=== PATIENT | male | born 1945 | race Caucasian/White ===

== ENCOUNTER 2022-06-16 09:59 | Outpatient (CLI) | payer MEDICARE, SELFPAY ==
[2022-06-16 10:26] LABS: Hematocrit 43.2 % (42.0-52.0); Hemoglobin 14.3 g/dL (14.0-18.0)
== END 2022-06-16 10:00 | disposition home or self-care (01) ==
PROVIDERS: Anesthesiology; PCP Internal Medicine; Visit Provider Neurological Surgery
DX: M48.061 Spinal stenosis, lumbar region without neurogenic claudication (principal); M48.07 Spinal stenosis, lumbosacral region; Z01.818 Encounter for other preprocedural examination
CPT/HCPCS: 36415; 85014; 85018; 86850; 86900; 86901

== ENCOUNTER 2022-06-19 00:53 | Day surgery (SDC) | payer MEDICARE, SELFPAY ==
[2022-06-12 09:32] VITALS: BMI 27.6
--- NOTE | 2022-06-12 10:05 | PC.NURSE ---
Report to the Outpatient Waiting Room, entrance under the green pavilion located off [facility], at time __10:00AM on date __06/19/22 . Planned Procedure Time: __12:00PM . Time changes happen often and if your time is changed the preop area will call you the afternoon before. - You and your visitor will be asked to self-screen and do not enter if you have any COVID symptoms. - Only one visitor is requested with a max of two and NO children visitors are allowed at this time. - The patient visitor may be requested to leave or wait in car when not with patient due to distancing restrictions. - A mask is optional within the hospital at this time. Patients may have clear liquids (water, carbonated beverages, clear teas, apple juice) until 3 hours prior to surgery with a maximum of 20 ounces. - No food from midnight until time of surgery Take the following medications with a SIP of water the morning of surgery: __NONE DO NOT STOP ANY OF YOUR OTHER PRESCRIPTION MEDICATIONS PRIOR TO SURGERY ?EXCEPT THE FOLLOWING Medications to discontinue per physician __HOLD ALL VITAMINS/SUPPLEMENTS 7 DAYS PRE-OP PER DR BECERRA(PER PATIENT) Date to take last dose____06/12/22 Please no make-up, nail tristanian, hairspray, perfume, deodorant, or body powder the day of surgery. No jewelry (including any body piercings) or valuables the day of surgery, leave them at home. Please take a shower or bath the night before, or the morning of, surgery with an antibacterial soap. Wear comfortable, loose fitting clothing. Children are encouraged to wear pajamas. - Jewelry must be removed prior to entering the operating room. Rings and piercings that are not removed may be cut off. - The hospital will not accept responsibility for valuables. - Please leave all valuables, including medications, at home the day of surgery. If you are going home after surgery, a licensed wheelchair van driver must drive you home. - NO public transportation without another adult if you receive anesthesia. - We recommend that an adult stay with you for 24 hours following discharge. - We also recommend that you do not drive, make important decision, drink alcoholic beverages, or take any drugs that were not prescribed by your health care provider for at least 24 hours after your discharge time. Follow any additional instructions given to you from your surgeon. If you or anyone in your household have experienced Covid symptoms in the past week, please notify your surgeon or the nurse liaison at the phone number below for possible testing. Telephone instructions given to _PATIENT and asked if any additional questions and then verbalized understanding. Patient advised to call surgeon office or pre surgery nurse liaison [phone] if any additional questions.
[2022-06-19] VITALS (23 sets, daily range): BP systolic 114–157; BP diastolic 60–96; PULSE 54–93; RESP 12–20; TEMP 36.3–36.9; O2SAT 94–100
--- NOTE | ~2022-06-19 | XR_ITS ---
EXAMINATION: XR fluoroscopy no charge INDICATION: L3-S1 hemilaminectomy TECHNIQUE: Two intraoperative fluoroscopic images are submitted for review. Total fluoroscopic time i s 5.8 seconds. COMPARISON: None available FINDINGS: Fluoroscopic images capture the lateral lumbar spine from L3 through S2. Posterior surgical instrumentation is noted. There is moderate to severe lumbar spondylosis. Please refer to procedure note for full details. IMPRESSION: 1. Please refer to procedure note for full details. Reviewed, dictated and finalized at location F.
[2022-06-19] MEDS: LACTATED RINGERS 1,000 ML 30 ML IV CONT (06:25)
--- NOTE | 2022-06-19 07:23 | WPDANESEPPF ---
Anes - Initial Pre Proc Eval Procedure: Operation Date: 06/19/22 07:30 Proposed Procedures p Right L3 S1 Hemilaminectomy - Mao Arteaga MD Date/Time: 06/19/22 07:23 Surgeon: Mao Arteaga MD Pre Op Diagnosis: Lumbar Sacral Stenosis, Lumbar Spondylosis Patient Data Age: 76 Gender: M Height: 1.8 m Weight: 91.1 kg Last Vital Signs Temp 97.3 F L 06/19/22 06:06 Pulse 54 L 06/19/22 06:06 Resp 18 06/19/22 06:06 BP 114/61 06/19/22 06:06 Pulse Ox 100 06/19/22 06:06 O2 Del Method Room Air 06/19/22 06:06 Allergies Allergy/AdvReac Type Severity Reaction Status Date / Time ciprofloxacin AdvReac PAIN-LOWER Verified 06/19/22 07:10 EXTREMITIES [id number]-[id number]-FhU Reductase AdvReac PAIN- Verified 06/19/22 07:10 Inhibitor LOWER EXTREMITIES Home Medications Medication Instructions Recorded Confirmed Type Lactobacillus 40-Bifidobact 1 cap PO DAILY 06/12/22 06/19/22 History 3-S.thermophilus 100 billion cell capsule (Probiotic) ascorbic acid (vitamin C) 500 mg 500 mg PO DAILY 06/12/22 06/19/22 History tablet ascorbic acid 30 mg-collagen, 1 tablet PO DAILY 06/12/22 06/19/22 History hydrolyzed 833.3 mg tablet (Collagen Skin Renewal) cholecalciferol (vitamin D3) 125 125 mcg PO DAILY 06/12/22 06/19/22 History mcg (5,000 unit) capsule coconut oil 1,000 mg capsule 1,000 mg PO DAILY 06/12/22 06/19/22 History glucosamine sulf dipot 1 cap PO DAILY 06/12/22 06/19/22 History chlr,msm,chond 550 mg-C 30 mg-missy 1 mg capsule (Glucosamine Chondroitin) glutamine 1,000 mg tablet 1,000 mg PO DAILY 06/12/22 06/19/22 History (L-Glutamine) magnesium 100 mg tablet 100 mg PO DAILY 06/12/22 06/19/22 History omega-3 fatty acids-fish oil 684 1 cap PO DAILY 06/12/22 06/19/22 History mg-1,200 mg capsule,delayed release oregano oil 1,500 mg capsule 1,500 mg PO DAILY 06/12/22 06/19/22 History selenium 100 mcg tablet 100 mcg PO DAILY 06/12/22 06/19/22 History thiamine HCl (vitamin B1) 100 mg 100 mg PO DAILY 06/12/22 06/19/22 History tablet (Vitamin B-1) ubiquinol 200 mg-B12 5 mg-folic 1 cap PO DAILY 06/12/22 06/19/22 History acid 0.8 mg-resveratrol 400 mg capsule vitamin E 400 unit tablet 400 unit PO DAILY 06/12/22 06/19/22 History zinc 50 mg capsule 50 mg PO DAILY 06/12/22 06/19/22 History Patient hx anesthesia problems: none Family hx anesthesia problems: none Results Review: All pre-operative results and documents have been reviewed as part of the pre-operative evaluation. [facility] [place] Social History Social History Smoking status: Never smoker Drinks per week: 7 Substance use: never Living arrangements: with family Additional living arrangements comments: Spiritual care concerns: No Anes - Eval Final PreProcedure Day of Procedure 06/19/22 07:23 Patient weight: overweight Heart: regular rate and rhythm Lungs: clear to auscultation Airway: Mallampati scale class II Neurological: alert and oriented Last oral intake: >/= 8 hours ASA classification: III Emergent: no Anesthetic plan: proceed Anesthesia type and monitoring: general ETT and standard monitoring Results Review: All pre-operative results and documents have been reviewed as part of the pre-operative evaluation. Informed Consent: The patient's anesthetic plan and its attendant risks and benefits were discussed with the patient/family/POA. Questions were solicited and answers provided to the satisfaction of the patient/family/POA.
--- NOTE | 2022-06-19 08:24 | WPDHPUPDATE1 ---
History and Physical Update Update Date/Time: 06/19/22 08:24 History and Physical has been reviewed, including an updated exam of the patient. There are NO changes in the patient's condition. Risks, benefits, and alternatives have been discussed and questions answered. Patient agrees to proceed with procedure.
--- NOTE | 2022-06-19 08:24 | PM.IMHP ---
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 He is not having new bowel or bladder difficulties or specific muscle group weakness or dermatomal numbness. He has not changed appreciably since we last saw him. Review of Systems Review of Systems: Patient denies shortness of breath, cough, fever, chills, nausea, vomiting, weight loss, weight gain, chest pain, dysuria. He has back and leg pain as above. His review of systems is otherwise negative on 12 systems except as noted elsewhere. PMFSH Social History Social History Smoking status: Never smoker Drinks per week: 7 Substance use: never Living arrangements: with family Additional living arrangements comments: Spiritual care concerns: No Meds Home Medications and Allergies Home Medications Medication Instructions Recorded Confirmed Type Lactobacillus 40-Bifidobact 1 cap PO DAILY 06/12/22 06/19/22 History 3-S.thermophilus 100 billion cell capsule (Probiotic) ascorbic acid (vitamin C) 500 mg 500 mg PO DAILY 06/12/22 06/19/22 History tablet ascorbic acid 30 mg-collagen, 1 tablet PO DAILY 06/12/22 06/19/22 History hydrolyzed 833.3 mg tablet (Collagen Skin Renewal) cholecalciferol (vitamin D3) 125 125 mcg PO DAILY 06/12/22 06/19/22 History mcg (5,000 unit) capsule coconut oil 1,000 mg capsule 1,000 mg PO DAILY 06/12/22 06/19/22 History glucosamine sulf dipot 1 cap PO DAILY 06/12/22 06/19/22 History chlr,msm,chond 550 mg-C 30 mg-missy 1 mg capsule (Glucosamine Chondroitin) glutamine 1,000 mg tablet 1,000 mg PO DAILY 06/12/22 06/19/22 History (L-Glutamine) magnesium 100 mg tablet 100 mg PO DAILY 06/12/22 06/19/22 History omega-3 fatty acids-fish oil 684 1 cap PO DAILY 06/12/22 06/19/22 History mg-1,200 mg capsule,delayed release oregano oil 1,500 mg capsule 1,500 mg PO DAILY 06/12/22 06/19/22 History selenium 100 mcg tablet 100 mcg PO DAILY 06/12/22 06/19/22 History thiamine HCl (vitamin B1) 100 mg 100 mg PO DAILY 06/12/22 06/19/22 History tablet (Vitamin B-1) ubiquinol 200 mg-B12 5 mg-folic 1 cap PO DAILY 06/12/22 06/19/22 History acid 0.8 mg-resveratrol 400 mg capsule vitamin E 400 unit tablet 400 unit PO DAILY 06/12/22 06/19/22 History zinc 50 mg capsule 50 mg PO DAILY 06/12/22 06/19/22 History Allergies Allergy/AdvReac Type Severity Reaction Status Date / Time ciprofloxacin AdvReac PAIN-LOWER Verified 06/19/22 07:10 EXTREMITIES Uvfjais-XWK-KwK Reductase AdvReac PAIN- Verified 06/19/22 07:10 Inhibitor LOWER EXTREMITIES Vital Signs Vital Signs - 24 hr 06/19/22 06:06 Temperature 97.3 F L Pulse Rate 54 L Respiratory Rate 18 Blood Pressure 114/61 Pulse Oximetry 100 Oxygen Delivery Room Air Exam Narrative: Strength is 5/5 in all muscle groups of the bilateral lower extremities. Sensation is intact to light touch throughout the lower extremities. Breathing is nonlabored, he speaks in complete sentences without difficulty. Regular rate and rhythm. 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 I described to him again that operation, its risks, potential benefits, the operative postoperative course in detail and answered all his questions personally. He indicates understanding and elects to proceed with that operation.
[2022-06-19] MEDS: ceFAZolin 2 GM/D5W 50 ML 2 GM/50 ML BAG IVPB (08:34)
[2022-06-19] MEDS: LIDO 1%/EPINEPHRINE 1:100,000 50 ML VIAL 10 ML INFILTRATE (09:29)
--- NOTE | 2022-06-19 10:50 | P.OP_ITS ---
Procedure Note - Detailed Date of Procedure 06/19/22 Pre-op Diagnosis Lumbar Sacral Stenosis, Lumbar Spondylosis Post-op Diagnosis Same Procedure Performed Left L3-S1 hemilaminectomy, redo, left L3-4 foraminotomy Surgeon Mao Arteaga MD Ballast Inspector Sara Anesthesia General Description of Procedure The patient was brought to the operative room in the supine position, was sedated, intubated placed under general anesthesia routine fashion. He was entered into the prone position on a Jaime frame. The area of operation on his back was examined, marked for incision, prepped and draped in routine sterile fashion. Incision was marked over the L3 through S1 spinous processes midline. This area was injected laparoscopic lidocaine with [id number] epinephrine. Intravenous antibiotics given prior to incision. Incision was made with a 10 blade scalpel down to the lumbar dorsal fascia. Subperiosteal dissection the muscles soft tissue weight was process and lamina at L 3 to 5 on the right was performed with a subperiosteal elevator regularly cautery. Her regular is dated verified level of operation. There was only collins lamina at L3. This was removed using a [employer] [place] drill with an a.m. 8 bit, curved curettes and Kerrison punches. The dura was densely adherent to the wall of the canal and was not able to be peeled away without a CSF leak occurring laterally. This was closed primarily with the 4-0 Nurolon suture in a fat graft it was later dressed with DuraSeal. The dissection in the lateral recess was carried inferiorly through thick scar. The dissection was quite difficult. The L3 inferior to clear process appeared to be loose and perhaps not attached. It was left in place. Curved curette confirmed lack of compression the lateral recess. At L3-4 advise retractor was used to perform a limited bony foraminotomy. Kerrison punches and curved curettes were used to remove additional bone ligament over the nerve until a nerve hook could be placed into foramen above moved nerve confirm lack of compression. The wound was then copiously irrigated with bacitracin irrigation and all bleeding was stopped with bipolar and Bovie cautery and Gelfoam thrombin powder. The DuraSeal was applied to the urethra leaking. Valsalva maneuver demonstrated no leaking. The wound was then closed in watertight fashion with 2-0 Vicryl interrupted sutures in the lumbar dorsal fascia and Mike's layer. 3-0 Vicryl buried interrupted sutures were placed in the dermis and the skin was closed with a running 4-0 Monocryl subcuticular stitch and dressed with Dermabond. The patient was then allowed to wake up in the operating room was taken to the recovery room in stable condition. There were no immediate complications of this operation. All counts were reported correct get the keys proved blood loss was 50cc. The patient was neurologically does baseline post operatively. CPT codes: 70191, 44907 x2 Estimated Blood Loss 50 IV Fluids 1,500 Complications Other complications ( inadvertent durotomy closed primarily as above.) Condition Stable Disposition PACU [facility] Billing Surgery - Charge Forward: Surgery Billing
[2022-06-19] MEDS: fentaNYL CITRATE INJ (*CRX) 100 MCG/2 ML VIAL 25 MCG IV PUSH ×2 (11:54→12:19)
--- NOTE | 2022-06-19 14:26 | SUR.PHASEI ---
1200 - pt ready, no bed available.
[2022-06-19] MEDS: HYDROcodone/acetaminophen (*CRX) 5-325 MG TABLET 1 TAB PO (15:25)
--- NOTE | 2022-06-19 19:23 | ADMGEN ---
This patient, Jah Matos, was admitted to [facility] Surg Room 319-01 at 1810. Patient/family oriented to hospital policies and general routines including ID bracelet, bed and alarms, visiting hours, pain management, procedures, bathroom and other care routines, personal items, smoking policy, room service/diet, and visiting hours. Information on how to activate the Rapid Response Team has been discussed. Patient/Family are encouraged to report perceived risks to care and to ask questions if they do not understand what they are told or what they should do.
[2022-06-19] MEDS: KCL 20 MEQ/D5/0.45% SOD CHL 1,000 ML 100 ML IV CONT (19:28)
[2022-06-19] MEDS: DOCUSATE SODIUM 100 MG CAPSULE PO (21:22)
[2022-06-19] MEDS: HYDROcodone/acetaminophen (*CRX) 10-325 MG TABLET 1 TAB PO (21:29)
[2022-06-20 00:32] VITALS: BP 116/60; PULSE 75; RESP 16; TEMP 36.4; O2SAT 98
[2022-06-20] MEDS: HYDROcodone/acetaminophen (*CRX) 10-325 MG TABLET 1 TAB PO ×3 (01:29→10:47)
[2022-06-20 05:06] VITALS: BP 101/49; PULSE 66; RESP 18; TEMP 36.6; O2SAT 97
[2022-06-20] MEDS: KCL 20 MEQ/D5/0.45% SOD CHL 1,000 ML 100 ML IV CONT (05:46)
[2022-06-20] MEDS: ONDANSETRON INJ 4 MG/2 ML VIAL IV PUSH (07:57)
[2022-06-20] MEDS: ASCORBIC ACID 500 MG TABLET PO (07:58)
[2022-06-20] MEDS: DOCUSATE SODIUM 100 MG CAPSULE PO ×2 (07:58→10:47)
[2022-06-20] MEDS: CYCLOBENZAPRINE HCL 10 MG TABLET PO (07:58)
[2022-06-20] MEDS: OMEGA 3 POLYUNSAT FATTY ACIDS 1 GM CAP PO (07:58)
[2022-06-20] MEDS: MAGNESIUM OXIDE 200 MG TABLET PO (07:58)
[2022-06-20] MEDS: THIAMINE HCL 100 MG TABLET PO (07:58)
[2022-06-20] MEDS: VITAMIN E 400 UNIT CAPSULE PO (07:58)
[2022-06-20] MEDS: ACIDOPHILUS/BULGARICUS CHEWABLE TABLET 1 TABLET PO (07:58)
[2022-06-20] MEDS: ZINC SULFATE 220 MG CAPSULE PO (07:58)
[2022-06-20] MEDS: CHOLECALCIFEROL 1,000 UNITS TABLET 5000 UNITS PO (10:18)
== END 2022-06-20 11:26 | disposition home or self-care (01) ==
LOC: ANHSURGERY 05:51 → ANH3MEDSUR 18:14
PROVIDERS: PCP Internal Medicine; Visit Provider Neurological Surgery
PROC: (CPT 63005; principal; 2022-06-19 07:30)
DX: M48.061 Spinal stenosis, lumbar region without neurogenic claudication (principal); M48.07 Spinal stenosis, lumbosacral region; M47.816 Spondylosis without myelopathy or radiculopathy, lumbar region
CPT/HCPCS: 63047; 63048 ×2; 99199; A9270; J0690; J1100; J1170; J2405; J2704; J3010; J3480; J7120